=== PATIENT | male | born 1990 | race African-American/Black ===

== ENCOUNTER 2020-11-11 20:02 | Emergency (ER) | payer OTHER, SELFPAY ==
[2020-11-11 20:12] VITALS: BP 141/78; PULSE 100; RESP 18; TEMP 36.8; O2SAT 97; BMI 31.8
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
== END 2020-11-11 21:24 | disposition home or self-care (01) ==
PROVIDERS: Emergency Provider Emergency Medicine
DX: M54.2 Cervicalgia (principal); Z79.899 Other long term (current) drug therapy
CPT/HCPCS: 99283